=== PATIENT | male | born 1990 | race Two or more races ===

== ENCOUNTER 2021-06-30 23:42 | Emergency (ER) | payer SELFPAY ==
[~2021-06-30] VITALS: Ht 185.4 cm; Wt 88.5 kg
[2021-06-30 23:51] VITALS: BP 130/81
== END 2021-07-01 00:26 | disposition home or self-care (01) ==
LOC: ER 23:46
DX: N20.0 Calculus of kidney (principal); Z88.6 Allergy status to analgesic agent